=== PATIENT | male | born 1980 | race Two or more races ===

== ENCOUNTER 2017-01-13 18:24 | Emergency (ER) | payer SELFPAY ==
[~2017-01-13] VITALS: Ht 170.2 cm; Wt 79.0 kg
[2017-01-13 18:40] VITALS: BP 131/93
== END 2017-01-13 19:30 | disposition left against medical advice (07) ==
LOC: ER 18:24
DX: Z53.21 Procedure and treatment not carried out due to patient leaving prior to being seen by health care provider (principal)